=== PATIENT | female | born 1935 | race African-American/Black ===

== ENCOUNTER 2017-12-06 12:16 | Inpatient (IN) ==
[2017-12-06 13:21] LABS: Basophils # 0.1 10*3/uL (0.0-0.2); Basophils % 0.6 % (0.0-0.8); Eosinophils # 0.3 10*3/uL (0.0-0.87); Eosinophils % 2.4 % (0.00-10.9); Hematocrit 41.3 VOL% (35.7-47.0); Hemoglobin 13.1 GM/DL (12.0-16.0); Immature Granulocytes % 0.6 %; Immature Granulocytes Absolute 0.07 #; Lymphocytes # 3.5 10*3/uL (1.4-4.0); Lymphocytes % 30.5 % (21.3-54.2); Mean Corpuscular HGB Conc 31.7 GM/DL (32-36); Mean Corpuscular Hemoglobin 28 PG (27-34); Mean Corpuscular Volume 86.6 FL (87-102); Mean Platelet Volume 11.4 FL (9.6-12.0); Monocytes # 1.2 10*3/uL (0.11-0.8); Monocytes % 10.7 % (1.7-12.7); Neutrophils # 6.3 10*3/uL (1.4-7.4); Neutrophils % 55.2 % (38.7-73.9); Platelet Count 356 T/CUMM (130-400); Red Blood Count 4.77 MC/CUMM (3.8-5.5); Red Cell Distribution Width 15.7 % (9.3-17.3); White Blood Count 11.5 T/CUMM (4-12)
[2017-12-06 13:43] LABS: PT Patient Result 10.5 SECS; Partial Thromboplastin Time 23.5 SECS (0-40)
[2017-12-06 13:47] LABS: Alanine Aminotransferase 17 U/L (13-56); Albumin 3.9 G/DL (3.4-5.0); Alkaline Phosphatase 117 U/L (45-117); Aspartate Amino Transferase 16 U/L (0-37); Bilirubin,Total < 0.39 MG/DL (0.2-1.0); Blood Urea Nitrogen 14 MG/DL (7-18); Calcium 9.1 MG/DL (8.5-10.1); Glucose 127 MG/DL (74-106); Osmolality,Calculated 279.5 MOS/KG (273-304); Potassium 3.4 MMOL/L (3.5-5.1); Sodium 139 MMOL/L (136-145); Total Protein 7.7 G/DL (6.4-8.3)
[2017-12-06] MEDS ORDERED: cefTRIAXone 1,000 MG in SODIUM CHLORIDE 0.9% 100 ML IV STA (14:21)
[2017-12-06 14:28] LABS: Apearance,Urine Slightly Hazy (Clear); Bilirubin,Urine Negative (Negative); Blood, Urine Negative (Negative); Glucose,Urine (UA) Negative (Negative); Ketones,Urine Negative (Negative); Nitrite,Urine Negative (Negative); Protein,Urine 30 MG/DL; RBC,Urine 44 /HPF (0-4); Squamous Epithelial Cell,Urine Occasional /HPF (0-10); Urine Color Yellow (Yellow); Urine Specific Gravity 1.008 (1.001-1.035); Urine Urobilinogen < 2.0 EU/DL (0.2-1.0); WBC,Urine 68 /HPF (0-6)
[2017-12-06 14:34] LABS: Barbiturates Screen,Urine Negative (Negative); Benzodiazepines Screen,Urine Negative (Negative); Cannabinoid Screen,Urine Negative (Negative); Opiate Screen,Urine Negative (Negative); Phencyclidine Screen,Urine Negative (Negative)
[2017-12-06] MEDS ORDERED: cefTRIAXone 1,000 MG VIAL ONE (14:53)
[2017-12-06] MEDS ORDERED: ONDANSETRON 4 MG/2 ML VIAL IV PRN (15:44)
[2017-12-06] MEDS ORDERED: ACETAMINOPHEN 325 MG TABLET PO PRN ×2 (15:44→18:26)
[2017-12-06] MEDS: SODIUM CHLORIDE 0.9% 1,000 ML IV SCH (16:13)
[2017-12-06] MEDS ORDERED: MAGNESIUM HYDROXIDE SUSP 30 ML UDCUP PO PRN (18:26)
[2017-12-06] MEDS ORDERED: LOPERAMIDE 2 MG CAPSULE PO PRN (18:26)
[2017-12-06] MEDS ORDERED: ZALEPLON 5 MG CAPSULE PO PRN (18:26)
[2017-12-06] MEDS ORDERED: DONEPEZIL 10 MG TABLET PO SCH (21:00)
[2017-12-06] MEDS ORDERED: QUEtiapine 25 MG TABLET PO SCH (21:00)
[2017-12-06] MEDS: MEGESTROL 400 MG/10 ML UDCUP PO SCH (23:08)
[2017-12-06] MEDS: POTASSIUM CHLORIDE 20 MEQ TABLET PO SCH (23:09)
[2017-12-06] MEDS: DOCUSATE SODIUM 100 MG CAPSULE PO SCH (23:09)
[2017-12-06] MEDS: GABAPENTIN 100 MG CAPSULE PO SCH (23:11)
[2017-12-06] MEDS: hydrALAZINE 25 MG TABLET PO SCH (23:12)
[2017-12-07] MEDS: SODIUM CHLORIDE 0.9% 1,000 ML IV SCH (06:00)
[2017-12-07] MEDS ORDERED: hydroCHLOROthiazide 12.5 MG CAPSULE PO SCH (09:00)
[2017-12-07] MEDS ORDERED: amLODIPine 5 MG TABLET PO SCH (09:00)
[2017-12-07] MEDS ORDERED: SERTRALINE 50 MG TABLET PO SCH (09:00)
[2017-12-07] MEDS ORDERED: MEMANTINE 10 MG TABLET PO SCH (09:00)
[2017-12-07] MEDS ORDERED: LOSARTAN 50 MG TABLET PO SCH (09:00)
[2017-12-07] MEDS ORDERED: PANTOPRAZOLE 40 MG TABLET PO SCH (09:00)
[2017-12-07] MEDS: GABAPENTIN 100 MG CAPSULE PO SCH ×2 (09:06→16:08)
[2017-12-07] MEDS: hydrALAZINE 25 MG TABLET PO SCH ×2 (09:06→13:50)
[2017-12-07] MEDS: DOCUSATE SODIUM 100 MG CAPSULE PO SCH (09:06)
[2017-12-07] MEDS: POTASSIUM CHLORIDE 20 MEQ TABLET PO SCH (09:06)
[2017-12-07] MEDS: MEGESTROL 400 MG/10 ML UDCUP PO SCH (09:06)
[2017-12-07 11:34] VITALS: BP 163/68
[2017-12-07] MEDS ORDERED: cefTRIAXone 1,000 MG in SYRINGE 1 EACH IV SCH (21:00)
== END 2017-12-07 15:34 | DRG 690 ==
LOC: EDUNIT# → EDBD → N.ED 12:16 → N.EDINP 14:22 → N.2E 15:40
PROVIDERS: ADMIT Family Medicine; ATTEND Family Medicine

== ENCOUNTER 2018-07-01 09:54 | Inpatient (IN) ==
[2018-07-01] MEDS ORDERED: SODIUM CHLORIDE 0.9% 500 ML IV STA (10:18)
[2018-07-01 10:51] LABS: PT Patient Result 10.4 SECS; Partial Thromboplastin Time 28.9 SECS (0-40)
[2018-07-01 11:06] LABS: Alanine Aminotransferase 25 U/L (13-56); Albumin 3.1 G/DL (3.4-5.0); Alkaline Phosphatase 70 U/L (45-117); Aspartate Amino Transferase 25 U/L (0-37); Blood Urea Nitrogen 18 MG/DL (7-18); Calcium 9.3 MG/DL (8.5-10.1); Glucose 133 MG/DL (74-106); Osmolality,Calculated 289.8 MOS/KG (273-304); Potassium 3.9 MMOL/L (3.5-5.1); Sodium 144 MMOL/L (136-145); Total Protein 7.7 G/DL (6.4-8.3); Troponin I Only 0.031 NG/ML (0.00-0.045)
[2018-07-01 11:27] LABS: Apearance,Urine CLEAR (Clear); Bilirubin,Urine Negative (Negative); Blood, Urine Negative (Negative); Glucose,Urine (UA) Negative (Negative); Hyaline Casts,Urine 1 /LPF (0-3); Ketones,Urine Negative (Negative); Mucus,Urine Occasional /LPF (Occasional); Nitrite,Urine Negative (Negative); Protein,Urine 30 MG/DL; RBC,Urine 3 /HPF (0-4); Squamous Epithelial Cell,Urine Occasional /HPF (0-10); Urine Color Yellow (Yellow); Urine Specific Gravity 1.015 (1.001-1.035)
[2018-07-01] MEDS ORDERED: ACETAMINOPHEN 500 MG TABLET PO PRN (12:05)
[2018-07-01] MEDS ORDERED: ONDANSETRON 4 MG/2 ML VIAL IV PRN (12:05)
[2018-07-01 12:20] LABS: Basophils # 0.1 10*3/uL (0.0-0.2); Basophils % 0.7 % (0.0-0.8); Eosinophils # 0.2 10*3/uL (0.0-0.87); Eosinophils % 1.7 % (0.00-10.9); Hematocrit 39.5 VOL% (35.7-47.0); Hemoglobin 12.5 GM/DL (12.0-16.0); Immature Granulocytes % 1.4 %; Immature Granulocytes Absolute 0.17 #; Lymphocytes # 2.6 10*3/uL (1.4-4.0); Lymphocytes % 21.7 % (21.3-54.2); Mean Corpuscular HGB Conc 31.6 GM/DL (32-36); Mean Corpuscular Hemoglobin 28 PG (27-34); Mean Corpuscular Volume 88.2 FL (87-102); Mean Platelet Volume 11.4 FL (9.6-12.0); Monocytes # 1.5 10*3/uL (0.11-0.8); Monocytes % 12.8 % (1.7-12.7); Neutrophils # 7.3 10*3/uL (1.4-7.4); Neutrophils % 61.7 % (38.7-73.9); Platelet Count 400 T/CUMM (130-400); Red Blood Count 4.48 MC/CUMM (3.8-5.5); Red Cell Distribution Width 15.5 % (9.3-17.3); White Blood Count 11.9 T/CUMM (4-12)
[2018-07-01] MEDS: hydrALAZINE 25 MG TABLET PO SCH ×3 (14:16→21:37)
[2018-07-01] MEDS ORDERED: LOPERAMIDE 2 MG CAPSULE PO PRN (15:14)
[2018-07-01] MEDS ORDERED: CYCLOBENZAPRINE 10 MG TABLET PO PRN (15:14)
[2018-07-01] MEDS ORDERED: NON-FORMULARY MEDICATION (Acetaminophen [Acetaminophen Er Tab] 650 MG) PO PRN (15:14)
[2018-07-01] MEDS ORDERED: MAGNESIUM HYDROXIDE SUSP 30 ML UDCUP PO PRN (15:14)
[2018-07-01] MEDS ORDERED: ZALEPLON 5 MG CAPSULE PO PRN (15:14)
[2018-07-01] MEDS ORDERED: diphenhydrAMINE CAP 25 MG CAPSULE PO PRN (15:14)
[2018-07-01] MEDS ORDERED: ONDANSETRON 4 MG TABLET PO PRN (15:14)
[2018-07-01] MEDS ORDERED: hydrALAZINE 25 MG TABLET PO SCH (17:00)
[2018-07-01] MEDS: QUEtiapine 25 MG TABLET PO SCH ×2 (17:07→21:38)
[2018-07-01] MEDS: GABAPENTIN 100 MG CAPSULE PO SCH ×2 (17:07→21:38)
[2018-07-01] MEDS: DONEPEZIL 10 MG TABLET PO SCH ×2 (21:37)
[2018-07-01] MEDS: POTASSIUM CHLORIDE 20 MEQ TABLET PO SCH (21:37)
[2018-07-01] MEDS: MEGESTROL 400 MG/10 ML UDCUP PO SCH (21:38)
[2018-07-02] MEDS ORDERED: LOSARTAN 50 MG TABLET PO SCH (09:00)
[2018-07-02] MEDS ORDERED: amLODIPine 5 MG TABLET PO SCH (09:00)
[2018-07-02] MEDS ORDERED: hydroCHLOROthiazide 12.5 MG CAPSULE PO SCH (09:00)
[2018-07-02] MEDS: QUEtiapine 25 MG TABLET PO SCH ×3 (16:12→21:13)
[2018-07-02] MEDS: hydrALAZINE 25 MG TABLET PO SCH ×3 (16:12→21:12)
[2018-07-02] MEDS: LOSARTAN 50 MG TABLET PO SCH (16:12)
[2018-07-02] MEDS: POTASSIUM CHLORIDE 20 MEQ TABLET PO SCH ×2 (16:13→21:12)
[2018-07-02] MEDS: MEGESTROL 400 MG/10 ML UDCUP PO SCH ×2 (16:13→21:13)
[2018-07-02] MEDS: GABAPENTIN 100 MG CAPSULE PO SCH ×3 (16:13→21:16)
[2018-07-02] MEDS: MEMANTINE 10 MG TABLET PO SCH ×2 (16:13→21:12)
[2018-07-02] MEDS: PANTOPRAZOLE 40 MG TABLET PO SCH (16:14)
[2018-07-02] MEDS: amLODIPine 5 MG TABLET PO SCH (16:14)
[2018-07-02] MEDS: SERTRALINE 50 MG TABLET PO SCH (16:14)
[2018-07-02] MEDS: DONEPEZIL 10 MG TABLET PO SCH ×2 (21:13)
[2018-07-03 08:19] VITALS: BP 144/68
[2018-07-03] MEDS: QUEtiapine 25 MG TABLET PO SCH (08:52)
[2018-07-03] MEDS: PANTOPRAZOLE 40 MG TABLET PO SCH (08:52)
[2018-07-03] MEDS: MEGESTROL 400 MG/10 ML UDCUP PO SCH (08:52)
[2018-07-03] MEDS: POTASSIUM CHLORIDE 20 MEQ TABLET PO SCH (08:53)
[2018-07-03] MEDS: GABAPENTIN 100 MG CAPSULE PO SCH (08:53)
[2018-07-03] MEDS: LOSARTAN 50 MG TABLET PO SCH (08:53)
[2018-07-03] MEDS: amLODIPine 5 MG TABLET PO SCH (08:56)
[2018-07-03] MEDS: MEMANTINE 10 MG TABLET PO SCH (08:57)
[2018-07-03] MEDS: hydrALAZINE 25 MG TABLET PO SCH (08:57)
[2018-07-03] MEDS: SERTRALINE 50 MG TABLET PO SCH (08:57)
== END 2018-07-03 12:30 | DRG 69 ==
LOC: EDBD → EDUNIT# → N.ED 09:54 → N.EDINP 12:03 → N.TELES 13:28
PROVIDERS: ADMIT Family Medicine; ATTEND Family Medicine

== ENCOUNTER 2018-08-30 18:30 | Inpatient (IN) ==
[2018-08-30] MEDS ORDERED: SODIUM CHLORIDE 0.9% 500 ML IV STA (18:55)
[2018-08-30 19:06] LABS: Basophils # 0.1 10*3/uL (0.0-0.2); Basophils % 0.6 % (0.0-0.8); Eosinophils # 0.3 10*3/uL (0.0-0.87); Eosinophils % 2.4 % (0.00-10.9); Hematocrit 39.3 VOL% (35.7-47.0); Hemoglobin 11.6 GM/DL (12.0-16.0); Immature Granulocytes % 1.2 %; Immature Granulocytes Absolute 0.15 #; Lymphocytes # 3.3 10*3/uL (1.4-4.0); Mean Corpuscular HGB Conc 29.5 GM/DL (32-36); Mean Corpuscular Hemoglobin 28 PG (27-34); Mean Corpuscular Volume 93.6 FL (87-102); Mean Platelet Volume 12.7 FL (9.6-12.0); Monocytes # 1.4 10*3/uL (0.11-0.8); Neutrophils # 7.4 10*3/uL (1.4-7.4); Neutrophils % 58.8 % (38.7-73.9); Platelet Count 291 T/CUMM (130-400); Red Cell Distribution Width 16.3 % (9.3-17.3); White Blood Count 12.6 T/CUMM (4-12)
[2018-08-30 19:16] LABS: PT Patient Result 10.7 SECS; Partial Thromboplastin Time 26.4 SECS (0-40)
[2018-08-30 19:29] LABS: Potassium 5.1 MMOL/L (3.5-5.1); Sodium 159 MMOL/L (136-145)
[2018-08-30 19:32] LABS: Calcium 8.9 MG/DL (8.5-10.1)
[2018-08-30 19:34] LABS: Albumin 3.6 G/DL (3.4-5.0); Blood Urea Nitrogen 46 MG/DL (7-18); Glucose 114 MG/DL (74-106); Osmolality,Calculated 326.7 MOS/KG (273-304)
[2018-08-30 19:35] LABS: Amylase 46 U/L (25-115)
[2018-08-30 19:37] LABS: Alanine Aminotransferase 23 U/L (13-56); Ammonia < 10 UMOL/L (11-32); Aspartate Amino Transferase 19 U/L (0-37)
[2018-08-30 19:38] LABS: Bilirubin,Total < 0.39 MG/DL (0.2-1.0)
[2018-08-30 19:39] LABS: Total Protein 8.1 G/DL (6.4-8.3)
[2018-08-30 19:40] LABS: Alkaline Phosphatase 92 U/L (45-117)
[2018-08-30 19:42] LABS: Lactic Acid 1.2 MMOL/L (0.4-2.0); Troponin I 0.048 NG/ML (0.00-0.045)
[2018-08-30 20:08] LABS: Apearance,Urine CLEAR (Clear); Bilirubin,Urine Negative (Negative); Blood, Urine Negative (Negative); Glucose,Urine (UA) Negative (Negative); Hyaline Casts,Urine 11 /LPF (0-3); Ketones,Urine Negative (Negative); Mucus,Urine Occasional /LPF (Occasional); Nitrite,Urine Negative (Negative); Protein,Urine 30 MG/DL; Urine Color Yellow (Yellow); Urine Specific Gravity 1.016 (1.001-1.035); WBC,Urine 1 /HPF (0-6)
[2018-08-30 20:28] LABS: Barbiturates Screen,Urine Negative (Negative); Benzodiazepines Screen,Urine Negative (Negative); Cannabinoid Screen,Urine Negative (Negative); Opiate Screen,Urine Negative (Negative); Phencyclidine Screen,Urine Negative (Negative)
[2018-08-30] MEDS ORDERED: ONDANSETRON 4 MG/2 ML VIAL IV PRN (20:36)
[2018-08-30] MEDS ORDERED: ACETAMINOPHEN 500 MG TABLET PO PRN (20:36)
[2018-08-30] MEDS: SODIUM CHLORIDE 0.45% 1,000 ML IV SCH (22:50)
[2018-08-30] MEDS: MEMANTINE 10 MG TABLET PO SCH (23:00)
[2018-08-30] MEDS: hydrALAZINE 25 MG TABLET PO SCH (23:00)
[2018-08-31 02:04] LABS: Apearance,Urine CLEAR (Clear); Bilirubin,Urine Negative (Negative); Blood, Urine Negative (Negative); Glucose,Urine (UA) Negative (Negative); Hyaline Casts,Urine 7 /LPF (0-3); Ketones,Urine Negative (Negative); Mucus,Urine Occasional /LPF (Occasional); Nitrite,Urine Negative (Negative); Protein,Urine Negative; RBC,Urine 2 /HPF (0-4); Squamous Epithelial Cell,Urine Occasional /HPF (0-10); Urine Color Yellow (Yellow); Urine Specific Gravity 1.015 (1.001-1.035); Urine Urobilinogen < 2.0 EU/DL (0.2-1.0); WBC,Urine 6 /HPF (0-6)
[2018-08-31 06:37] LABS: Basophils # 0.1 10*3/uL (0.0-0.2); Basophils % 0.6 % (0.0-0.8); Eosinophils # 0.3 10*3/uL (0.0-0.87); Eosinophils % 2.5 % (0.00-10.9); Hematocrit 34.8 VOL% (35.7-47.0); Hemoglobin 10.3 GM/DL (12.0-16.0); Immature Granulocytes % 0.6 %; Immature Granulocytes Absolute 0.07 #; Lymphocytes # 3.4 10*3/uL (1.4-4.0); Lymphocytes % 28.5 % (21.3-54.2); Mean Corpuscular HGB Conc 29.6 GM/DL (32-36); Mean Corpuscular Hemoglobin 27 PG (27-34); Mean Corpuscular Volume 91.1 FL (87-102); Mean Platelet Volume 12.3 FL (9.6-12.0); Monocytes # 1.2 10*3/uL (0.11-0.8); Monocytes % 9.7 % (1.7-12.7); Neutrophils % 58.1 % (38.7-73.9); Platelet Count 272 T/CUMM (130-400); Red Blood Count 3.82 MC/CUMM (3.8-5.5); Red Cell Distribution Width 15.9 % (9.3-17.3)
[2018-08-31] MEDS: SODIUM CHLORIDE 0.45% 1,000 ML IV SCH ×3 (06:40→23:00)
[2018-08-31 07:09] LABS: Calcium 8.1 MG/DL (8.5-10.1); Potassium 3.9 MMOL/L (3.5-5.1)
[2018-08-31] MEDS: cefTRIAXone 1,000 MG in SYRINGE 1 EACH IV SCH (13:00)
[2018-08-31] MEDS ORDERED: LOPERAMIDE 2 MG CAPSULE PO PRN (13:08)
[2018-08-31] MEDS ORDERED: diphenhydrAMINE CAP 25 MG CAPSULE PO PRN (13:08)
[2018-08-31] MEDS ORDERED: ZALEPLON 5 MG CAPSULE PO PRN (13:08)
[2018-08-31] MEDS ORDERED: ONDANSETRON 4 MG TABLET PO PRN (13:08)
[2018-08-31] MEDS ORDERED: MAGNESIUM HYDROXIDE SUSP 30 ML UDCUP PO PRN (13:08)
[2018-08-31] MEDS ORDERED: ACETAMINOPHEN 325 MG TABLET PO PRN (13:17)
[2018-08-31] MEDS: LOSARTAN 50 MG TABLET PO SCH (14:45)
[2018-08-31] MEDS: PANTOPRAZOLE 40 MG TABLET PO SCH (14:45)
[2018-08-31] MEDS: hydrALAZINE 25 MG TABLET PO SCH ×3 (14:45→22:59)
[2018-08-31] MEDS: amLODIPine 5 MG TABLET PO SCH (14:45)
[2018-08-31] MEDS: MEMANTINE 10 MG TABLET PO SCH ×2 (14:45→22:59)
[2018-08-31] MEDS: SERTRALINE 50 MG TABLET PO SCH (14:46)
[2018-08-31] MEDS ORDERED: hydrALAZINE 25 MG TABLET PO SCH (17:00)
[2018-08-31] MEDS: QUEtiapine 25 MG TABLET PO SCH ×2 (17:10→22:59)
[2018-08-31] MEDS: GABAPENTIN 100 MG CAPSULE PO SCH ×2 (17:10→22:59)
[2018-08-31] MEDS: DONEPEZIL 10 MG TABLET PO SCH (22:58)
[2018-08-31] MEDS: POTASSIUM CHLORIDE 20 MEQ TABLET PO SCH (22:58)
[2018-08-31] MEDS: MEGESTROL 400 MG/10 ML UDCUP PO SCH (22:59)
[2018-09-01] MEDS: SODIUM CHLORIDE 0.45% 1,000 ML IV SCH (06:21)
[2018-09-01 07:01] LABS: Calcium 7.9 MG/DL (8.5-10.1); Potassium 3.4 MMOL/L (3.5-5.1)
[2018-09-01] MEDS: MEGESTROL 400 MG/10 ML UDCUP PO SCH ×2 (08:58→20:52)
[2018-09-01] MEDS: SERTRALINE 50 MG TABLET PO SCH (08:58)
[2018-09-01] MEDS: MEMANTINE 10 MG TABLET PO SCH ×2 (08:58→20:54)
[2018-09-01] MEDS: PANTOPRAZOLE 40 MG TABLET PO SCH (08:58)
[2018-09-01] MEDS: LOSARTAN 50 MG TABLET PO SCH (08:58)
[2018-09-01] MEDS: amLODIPine 5 MG TABLET PO SCH (08:58)
[2018-09-01] MEDS: POTASSIUM CHLORIDE 20 MEQ TABLET PO SCH ×2 (08:58→21:59)
[2018-09-01] MEDS: QUEtiapine 25 MG TABLET PO SCH ×3 (08:58→20:53)
[2018-09-01] MEDS: hydrALAZINE 25 MG TABLET PO SCH ×4 (08:58→20:49)
[2018-09-01] MEDS ORDERED: SERTRALINE 50 MG TABLET PO SCH (09:00)
[2018-09-01] MEDS ORDERED: NON-FORMULARY MEDICATION (Memantine Hcl [Namenda Xr] 28 MG) PO SCH (09:00)
[2018-09-01] MEDS: cefTRIAXone 1,000 MG in SYRINGE 1 EACH IV SCH (11:30)
[2018-09-01] MEDS ORDERED: DEXTROSE 5% 1,000 ML IV SCH (13:00)
[2018-09-01] MEDS: GABAPENTIN 100 MG CAPSULE PO SCH ×2 (16:45→20:55)
[2018-09-01] MEDS: DEXT 5% NACL 0.2% KCL 20 MEQ 20 MEQ/1,000 ML BAG IV SCH (19:43)
[2018-09-01] MEDS: DONEPEZIL 10 MG TABLET PO SCH (20:49)
[2018-09-02 06:32] LABS: Calcium 7.8 MG/DL (8.5-10.1); Osmolality,Calculated 289.7 MOS/KG (273-304); Potassium 3.9 MMOL/L (3.5-5.1)
[2018-09-02 08:17] VITALS: BP 169/62
[2018-09-02] MEDS: SERTRALINE 50 MG TABLET PO SCH (08:47)
[2018-09-02] MEDS: MEGESTROL 400 MG/10 ML UDCUP PO SCH (08:47)
[2018-09-02] MEDS: hydrALAZINE 25 MG TABLET PO SCH (08:47)
[2018-09-02] MEDS: POTASSIUM CHLORIDE 20 MEQ TABLET PO SCH (08:47)
[2018-09-02] MEDS: LOSARTAN 50 MG TABLET PO SCH (08:47)
[2018-09-02] MEDS: PANTOPRAZOLE 40 MG TABLET PO SCH (08:47)
[2018-09-02] MEDS: MEMANTINE 10 MG TABLET PO SCH (08:48)
[2018-09-02] MEDS: amLODIPine 5 MG TABLET PO SCH (08:48)
[2018-09-02] MEDS: DEXT 5% NACL 0.2% KCL 20 MEQ 20 MEQ/1,000 ML BAG IV SCH (08:48)
[2018-09-02] MEDS: QUEtiapine 25 MG TABLET PO SCH (08:48)
[2018-09-02] MEDS ORDERED: INFLUENZA VIRUS VACCINE 0.5 ML SYRINGE IM ONE (10:00)
[2018-09-02] MEDS ORDERED: PNEUMOCOCCAL VACCINE (13 VALENT) 0.5 ML SYRINGE IM ONE (10:00)
[2018-09-02] MEDS: BISACODYL 10 MG SUPP RECTAL ONE ×2 (10:05→10:10)
== END 2018-09-02 11:28 | disposition hospice, home (50) | DRG 683 ==
LOC: EDBD → EDUNIT# → N.ED 18:30 → N.EDINP 20:34 → N.5E 21:37
PROVIDERS: ADMIT Family Medicine; ATTEND Family Medicine

== ENCOUNTER 2018-12-20 11:55 | Inpatient (IN) ==
[2018-12-20] MEDS ORDERED: SODIUM CHLORIDE 0.9% 1,000 ML IV STA (13:01)
[2018-12-20 14:54] LABS: Alanine Aminotransferase 18 U/L (13-56); Albumin 3.4 G/DL (3.4-5.0); Alkaline Phosphatase 85 U/L (45-117); Aspartate Amino Transferase 14 U/L (0-37); Bilirubin,Total < 0.39 MG/DL (0.2-1.0); Blood Urea Nitrogen 45 MG/DL (7-18); Calcium 8.6 MG/DL (8.5-10.1); Glucose 84 MG/DL (74-106); Osmolality,Calculated 341.5 MOS/KG (273-304); Total Protein 7.3 G/DL (6.4-8.3)
[2018-12-20 14:55] LABS: Basophils # 0.1 10*3/uL (0.0-0.2); Basophils % 0.6 % (0.0-0.8); Eosinophils # 0.3 10*3/uL (0.0-0.87); Eosinophils % 2.3 % (0.00-10.9); Hematocrit 41.9 VOL% (35.7-47.0); Hemoglobin 12.2 GM/DL (12.0-16.0); Immature Granulocytes % 0.9 %; Lymphocytes % 27.8 % (21.3-54.2); Mean Corpuscular HGB Conc 29.1 GM/DL (32-36); Mean Corpuscular Hemoglobin 27 PG (27-34); Mean Corpuscular Volume 92.5 FL (87-102); Monocytes # 1.3 10*3/uL (0.11-0.8); Monocytes % 11.7 % (1.7-12.7); NRBC # 0.02 10*3/uL; Neutrophils # 6.2 10*3/uL (1.4-7.4); Neutrophils % 56.7 % (38.7-73.9); Platelet Count 167 T/CUMM (130-400); Red Blood Count 4.53 MC/CUMM (3.8-5.5); Red Cell Distribution Width 16.9 % (9.3-17.3); White Blood Count 10.9 T/CUMM (4-12)
[2018-12-20 16:02] LABS: Eosinophils 1 % (0-10); Lymphocytes 26 % (20-55); Segmented Neutrophils 64 % (50-85)
[2018-12-20 16:03] LABS: Anisocytosis Slight; Ovalocytes Few
[2018-12-20 16:04] LABS: Platelet Estimate Normal; Total Cells Counted 100
[2018-12-20] MEDS ORDERED: ONDANSETRON 4 MG/2 ML VIAL IV PRN (18:39)
[2018-12-20] MEDS ORDERED: ACETAMINOPHEN 325 MG TABLET PO PRN (18:39)
[2018-12-20] MEDS ORDERED: LOPERAMIDE 2 MG CAPSULE PO PRN (18:52)
[2018-12-20] MEDS ORDERED: ZALEPLON 5 MG CAPSULE PO PRN (18:52)
[2018-12-20] MEDS ORDERED: diphenhydrAMINE CAP 25 MG CAPSULE PO PRN (18:52)
[2018-12-20] MEDS ORDERED: MAGNESIUM HYDROXIDE SUSP 30 ML UDCUP PO PRN (18:52)
[2018-12-20] MEDS ORDERED: ONDANSETRON 4 MG TABLET PO PRN (18:52)
[2018-12-20] MEDS: SODIUM CHLORIDE 0.45% 1,000 ML IV SCH (19:07)
[2018-12-20] MEDS: DOCUSATE SODIUM 100 MG CAPSULE PO SCH (22:22)
[2018-12-20] MEDS: QUEtiapine 25 MG TABLET PO SCH (22:22)
[2018-12-20] MEDS: GABAPENTIN 100 MG CAPSULE PO SCH (22:22)
[2018-12-20] MEDS: MEGESTROL 400 MG/10 ML UDCUP PO SCH (22:23)
[2018-12-20] MEDS: FLUTICASONE 50 MCG NASAL SPRAY 16 GM BOTTLE BOTH NARES SCH (22:23)
[2018-12-20] MEDS: ENOXAPARIN 30 MG/0.3 ML SYRINGE SUBCUT SCH (22:23)
[2018-12-20] MEDS: hydrALAZINE 25 MG TABLET PO SCH (22:23)
[2018-12-21] MEDS: SODIUM CHLORIDE 0.45% 1,000 ML IV SCH ×3 (02:10→17:28)
[2018-12-21 05:23] LABS: Albumin 2.8 G/DL (3.4-5.0); Bilirubin,Total 0.8 MG/DL (0.2-1.0); Osmolality,Calculated 325.3 MOS/KG (273-304); Potassium 3.9 MMOL/L (3.5-5.1); Total Protein 6.1 G/DL (6.4-8.3)
[2018-12-21 05:59] LABS: Basophils # 0.1 10*3/uL (0.0-0.2); Basophils % 0.4 % (0.0-0.8); Eosinophils # 0.3 10*3/uL (0.0-0.87); Eosinophils % 2.5 % (0.00-10.9); Hematocrit 35.9 VOL% (35.7-47.0); Immature Granulocytes % 0.7 %; Immature Granulocytes Absolute 0.08 #; Lymphocytes # 3.7 10*3/uL (1.4-4.0); Lymphocytes % 30.8 % (21.3-54.2); Mean Corpuscular HGB Conc 29.2 GM/DL (32-36); Mean Corpuscular Hemoglobin 27 PG (27-34); Mean Corpuscular Volume 92.5 FL (87-102); Monocytes # 1.3 10*3/uL (0.11-0.8); Monocytes % 10.8 % (1.7-12.7); Neutrophils # 6.5 10*3/uL (1.4-7.4); Neutrophils % 54.8 % (38.7-73.9); Platelet Count 132 T/CUMM (130-400); Red Blood Count 3.88 MC/CUMM (3.8-5.5); Red Cell Distribution Width 16.7 % (9.3-17.3); White Blood Count 11.9 T/CUMM (4-12)
[2018-12-21 06:01] LABS: Hemoglobin 10.6 GM/DL (12.0-16.0)
[2018-12-21 06:16] LABS: Hypochromasia 1+; Platelet Estimate Normal
[2018-12-21] MEDS: QUEtiapine 25 MG TABLET PO SCH ×3 (10:05→22:18)
[2018-12-21] MEDS: MEGESTROL 400 MG/10 ML UDCUP PO SCH ×2 (10:05→22:17)
[2018-12-21 10:06] LABS: Sodium 168 MMOL/L (136-145)
[2018-12-21] MEDS: DOCUSATE SODIUM 100 MG CAPSULE PO SCH ×2 (10:06→22:18)
[2018-12-21] MEDS: SERTRALINE 50 MG TABLET PO SCH (10:06)
[2018-12-21] MEDS: GABAPENTIN 100 MG CAPSULE PO SCH ×3 (10:06→22:17)
[2018-12-21] MEDS: LOSARTAN 50 MG TABLET PO SCH (10:06)
[2018-12-21] MEDS: hydrALAZINE 25 MG TABLET PO SCH ×4 (10:06→22:18)
[2018-12-21] MEDS: amLODIPine 5 MG TABLET PO SCH (10:06)
[2018-12-21] MEDS: PANTOPRAZOLE 40 MG TABLET PO SCH (10:06)
[2018-12-21] MEDS: MEMANTINE 10 MG TABLET PO SCH ×2 (10:07→22:18)
[2018-12-21 12:42] LABS: Apearance,Urine CLEAR (Clear); Bilirubin,Urine Negative (Negative); Blood, Urine Negative (Negative); Glucose,Urine (UA) Negative (Negative); Hyaline Casts,Urine 5 /LPF (0-3); Ketones,Urine Negative (Negative); Mucus,Urine Occasional /LPF (Occasional); Nitrite,Urine Negative (Negative); Protein,Urine Negative; RBC,Urine 9 /HPF (0-4); Urine Color Yellow (Yellow); Urine Specific Gravity 1.017 (1.001-1.035); Urine Urobilinogen < 2.0 EU/DL (0.2-1.0); WBC,Urine <1 /HPF (0-6)
[2018-12-21] MEDS: POTASSIUM CHLORIDE 20 MEQ TABLET PO SCH ×2 (17:23→22:18)
[2018-12-21] MEDS: FLUTICASONE 50 MCG NASAL SPRAY 16 GM BOTTLE BOTH NARES SCH (22:18)
[2018-12-21] MEDS: ENOXAPARIN 30 MG/0.3 ML SYRINGE SUBCUT SCH (22:18)
[2018-12-22] MEDS: SODIUM CHLORIDE 0.45% 1,000 ML IV SCH ×5 (01:17→23:36)
[2018-12-22 05:30] LABS: Albumin 2.8 G/DL (3.4-5.0); Bilirubin,Total 0.6 MG/DL (0.2-1.0); Calcium 7.9 MG/DL (8.5-10.1); Osmolality,Calculated 303.6 MOS/KG (273-304); Potassium 3.5 MMOL/L (3.5-5.1); Total Protein 5.8 G/DL (6.4-8.3)
[2018-12-22] MEDS: MEGESTROL 400 MG/10 ML UDCUP PO SCH ×2 (10:23→21:17)
[2018-12-22] MEDS: MEMANTINE 10 MG TABLET PO SCH ×2 (10:24→21:17)
[2018-12-22] MEDS: DOCUSATE SODIUM 100 MG CAPSULE PO SCH ×2 (10:24→21:17)
[2018-12-22] MEDS: GABAPENTIN 100 MG CAPSULE PO SCH ×3 (10:24→21:16)
[2018-12-22] MEDS: amLODIPine 5 MG TABLET PO SCH (10:24)
[2018-12-22] MEDS: LOSARTAN 50 MG TABLET PO SCH (10:24)
[2018-12-22] MEDS: PANTOPRAZOLE 40 MG TABLET PO SCH (10:24)
[2018-12-22] MEDS: POTASSIUM CHLORIDE 20 MEQ TABLET PO SCH ×2 (10:24→21:16)
[2018-12-22] MEDS: SERTRALINE 50 MG TABLET PO SCH (10:24)
[2018-12-22] MEDS: QUEtiapine 25 MG TABLET PO SCH ×3 (10:25→21:17)
[2018-12-22] MEDS: hydrALAZINE 25 MG TABLET PO SCH ×4 (10:25→21:16)
[2018-12-22] MEDS ORDERED: ENOXAPARIN 40 MG/0.4 ML SYRINGE SUBCUT SCH (21:00)
[2018-12-22] MEDS: POTASSIUM CHLORIDE RIDER 10 MEQ in PREMIX 1 EACH IV SCH (21:13)
[2018-12-22] MEDS: FLUTICASONE 50 MCG NASAL SPRAY 16 GM BOTTLE BOTH NARES SCH (21:17)
[2018-12-22] MEDS ORDERED: POTASSIUM CHLORIDE RIDER 10 MEQ in PREMIX 1 EACH IV SCH (23:30)
[2018-12-23] MEDS: POTASSIUM CHLORIDE RIDER 10 MEQ in PREMIX 1 EACH IV SCH (02:10)
[2018-12-23 05:21] LABS: Calcium 7.9 MG/DL (8.5-10.1); Osmolality,Calculated 291.4 MOS/KG (273-304); Potassium 3.4 MMOL/L (3.5-5.1)
[2018-12-23] MEDS: SODIUM CHLORIDE 0.45% 1,000 ML IV SCH (07:09)
[2018-12-23] MEDS ORDERED: POTASSIUM CHLORIDE 20 MEQ TABLET PO ONE (09:00)
[2018-12-23 09:02] VITALS: BP 180/80
[2018-12-23] MEDS: GABAPENTIN 100 MG CAPSULE PO SCH (11:06)
[2018-12-23] MEDS: hydrALAZINE 25 MG TABLET PO SCH (11:06)
[2018-12-23] MEDS: MEGESTROL 400 MG/10 ML UDCUP PO SCH (11:06)
[2018-12-23] MEDS: QUEtiapine 25 MG TABLET PO SCH (11:09)
[2018-12-23] MEDS: DOCUSATE SODIUM 100 MG CAPSULE PO SCH (11:09)
[2018-12-23] MEDS: SERTRALINE 50 MG TABLET PO SCH (11:09)
[2018-12-23] MEDS: LOSARTAN 50 MG TABLET PO SCH (11:09)
[2018-12-23] MEDS: amLODIPine 5 MG TABLET PO SCH (11:09)
[2018-12-23] MEDS: POTASSIUM CHLORIDE 20 MEQ TABLET PO SCH (11:10)
[2018-12-23] MEDS: MEMANTINE 10 MG TABLET PO SCH (11:10)
[2018-12-23] MEDS: PANTOPRAZOLE 40 MG TABLET PO SCH (11:10)
== END 2018-12-23 12:50 | DRG 683 ==
LOC: EDBD → EDUNIT# → N.ED 11:55 → INTOOBSV 15:33 → N.EDINP 16:18 → N.2E 18:03
PROVIDERS: ADMIT Family Medicine; ATTEND Family Medicine